=== PATIENT | female | born 2000 | race Two or more races ===

== ENCOUNTER → 2024-11-14 | Outpatient (CLI) | payer MEDICAID ==
[2024-11-16 07:06] LABS: Chlamydia Trachomatis, NAA Negative (Negative); Neisseria gonorrhoeae, NAA Negative (Negative)
== END | disposition home or self-care (01) ==
LOC: LAB 10:19
PROVIDERS: ATTEND Obstetrics & Gynecology
DX: Z34.80 Encounter for supervision of other normal pregnancy, unspecified trimester (principal); Z3A.00 Weeks of gestation of pregnancy not specified; Z72.51 High risk heterosexual behavior

== ENCOUNTER 2024-11-21 13:08 | Observation (INO) | payer MEDICAID ==
--- NOTE | 2024-11-21 17:02 | DVHDS2 ---
Physician Discharge Progress N Final Diagnosis: back pain 37wks Operations or Procedures: Operations or Procedures nst reactive reviwed,halo Condition on Discharge: Good Disposition: Home Discharge Instructions: Diet: Regular Activity: Light activity Medications: na Follow Up Care: Specialist: 3d Discharge Statement: "Patient was advised to return to the ER or call 911 if any headaches, dizziness, shortness of breath, chest pain, abdominal pain, bleeding, fevers, or worsening of medical condition. Patient was counseled about treatment plan, medications, possible side effects, patientverbalized understanding. All questions were answered to the best of my ability. This discharge took greater then 30 minutes in planning, reviewing documentation, counseling the patient, and discussing with other team members." Visit Coding OBGYN Date of Service: November 21, 2024 Billing Provider: DAYNE HUERTA DO MORTGAGE ASSISTANT Common Visit Codes: 87885-[id number] OBS CARE (HIGH) MORTGAGE ASSISTANT Procedure Codes: 80389-62- NON-STRESS TEST DAYNE HUERTA DO November 21, 2024 17:02
== END 2024-11-21 14:55 | disposition home or self-care (01) ==
LOC: LDRP 13:08 → UNDOADMOB 13:08 → LDRP 13:19
PROVIDERS: ADMIT Obstetrics & Gynecology; ATTEND Obstetrics & Gynecology
DX: O99.891 Other specified diseases and conditions complicating pregnancy (principal); M54.59 Other low back pain; O62.9 Abnormality of forces of labor, unspecified; Z3A.37 37 weeks gestation of pregnancy; Z79.899 Other long term (current) drug therapy; Z98.890 Other specified postprocedural states
CPT/HCPCS: 59025; 81002; 94760; G0378

== ENCOUNTER 2024-11-28 12:15 | Observation (INO) | payer MEDICAID ==
[2024-11-28] MEDS ORDERED: PREN-96 PO ×2 (12:35)
--- NOTE | 2024-11-28 18:35 | DVHDS2 ---
Physician Discharge Progress N Final Diagnosis: labor check,ucs 38wks Operations or Procedures: Operations or Procedures nst reviewed reactive Condition on Discharge: Good Disposition: Home Discharge Instructions: Diet: Regular Activity: No Restrictions, As Tolerated Follow Up/Referral: as scheduled. Medications: na Follow Up Care: Specialist: 1d Discharge Statement: "Patient was advised to return to the ER or call 911 if any headaches, dizziness, shortness of breath, chest pain, abdominal pain, bleeding, fevers, or worsening of medical condition. Patient was counseled about treatment plan, medications, possible side effects, patientverbalized understanding. All questions were answered to the best of my ability. This discharge took greater then 30 minutes in planning, reviewing documentation, counseling the patient, and discussing with other team members." Visit Coding OBGYN Date of Service: Nov 28, 2024 Billing Provider: DAYNE HUERTA DO THERAPY ASSISTANT Common Visit Codes: [id number] INP/OBS CARE (HIGH) THERAPY ASSISTANT Procedure Codes: 15740-09- NON-STRESS TEST DAYNE HUERTA DO Nov 28, 2024 18:35
== END 2024-11-28 13:29 | disposition home or self-care (01) ==
LOC: LDRP 12:15 → UNDOADMOB 12:15 → LDRP 12:32 → UNDODISOB 13:29
PROVIDERS: ADMIT Obstetrics & Gynecology; ATTEND Obstetrics & Gynecology
DX: O62.9 Abnormality of forces of labor, unspecified (principal); Z3A.38 38 weeks gestation of pregnancy; Z79.899 Other long term (current) drug therapy; Z98.890 Other specified postprocedural states
CPT/HCPCS: 59025; 81002; 94760; G0378

== ENCOUNTER 2024-11-29 19:18 | Observation (INO) | payer MEDICAID ==
[~2024-11-29] VITALS: Ht 154.9 cm; Wt 88.9 kg
[~2024-11-29 19:18] MED LIST: PREN-96 PO
[2024-11-29 21:18] LABS: Urine Bacteria None Seen /hpf (None Seen)
[2024-11-29 21:44] LABS: Amphetamine Screen, Urine Neg (NEGATIVE); Barbiturate Scree,Urine Neg (NEGATIVE); Benzodiazephine Screen, Urine Neg (NEGATIVE); Cannabinoid Screen, Urine Neg (NEGATIVE); Cocaine Screen, Urine Neg (NEGATIVE); Opiate Scree,Urine Neg (NEGATIVE); Phencyclidine Screen, Urine Neg (NEGATIVE)
[2024-11-29 21:46] LABS: Urine Blood Negative /uL (Negative); Urine Clarity Clear (Clear); Urine Color Light-Yellow (Yellow); Urine Mucus FEW (None Seen); Urine Protein, UAD Negative (Negative); Urine Specific Gravity 1.017 (1.001-1.035); Urine Squamous Epithelial Cell FEW /hpf (<5); Urine Urobilinogen Normal (Negative); Urine WBC 1 /HPF (0-5); Urine pH 6.5 (5.0-9.0)
[2024-11-29] MEDS ORDERED: ACETAMINOPHEN 500 MG TAB or CAP PO ONE (22:30)
[2024-11-29] MEDS: ACETAMINOPHEN 500 MG TAB or CAP PO ONE (22:39)
--- NOTE | 2024-11-29 22:59 | DVHDS2 ---
Physician Discharge Progress N Final Diagnosis: IUP at 38w 3d Catgory I FHR traacing Prodromal Labor Operations or Procedures: Operations or Procedures S 24yo G3,1011 with EDC of 12/10/24 by LMP, EGA 38w [address]d presents to [address]. She reports seeing blood on toilet paper when she wipes her genital area normal movements, no LOF, She reports no urinary symptom. O: A&O x3, VSS Resp unlabored Appears uncomfortable Abdomen palpate soft between contractions FHR baseline: 130bpm, mod variability, accelerations present, no deceleration noted Contractions mod to palpation, frequency every 10minutes VE 2/50/-2 posterior cervix @ 19:51pm A: IUP at 38w 2d P: EFM UA oral hydration Re-assess in 1-2hours Re-assessment @ 22:17 UCs noted on EFM, Frequency: every 10min, same mod to palpation FHR baseline 150bpm, mod variability with acceleration, no deceleration UA report significant for presence of 2+ Ketones, no Leukocyte, no nitrite VE: no cervical change P: Acetaminophen 1G orally x 1 dose Discharge home; pt [place] [address], has family members that will bring her back if needed Advised to increase water intake. Discussed pain relief measures she can incorporate at home to facilitate labor 3rd trimester emergency S&S [facility], labor & pre-eclampsia precautions reviewed with pt; advised to seek health care if any Keep all scheduled appointments; seek care sooner if needed Condition on Discharge: Stable Disposition: Home Discharge Instructions: Diet: Regular Activity: No Restrictions, As Tolerated Activity comment: balance activities with rest period Medications: None Follow Up Care: Discharge Statement: 3rd trimester emergency S&S [facility], labor & pre-eclampsia precautions reviewed with pt; advised to seek health care if any "Patient was advised to return to the ER or call 911 if any headaches, dizzi ness, shortness of breath, chest pain, abdominal pain, bleeding, fevers, or worsening of medical condition. Patient was counseled about treatment plan, medications, possible side effects, patientverbalized understanding. All questions were answered to the best of my ability. This discharge took greater then 30 minutes in planning, reviewing documentation, counseling the patient, and discussing with other team members." Visit Coding OBGYN Date of Service: Nov 29, 2024 Billing Provider: ANSELMO LEVIN CNM WINDOW ASSEMBLER Common Visit Codes: 83850-IMB/OBS SAME DATE (HIGH) WINDOW ASSEMBLER Procedure Codes: 31181-53- NON-STRESS TEST ANSELMO LEVIN CNM Nov 29, 2024 22:59
== END 2024-11-29 23:02 | disposition home or self-care (01) ==
LOC: LDRP 19:18
PROVIDERS: ADMIT Obstetrics & Gynecology; ATTEND Obstetrics & Gynecology
DX: O60.03 Preterm labor without delivery, third trimester (principal); Z3A.38 38 weeks gestation of pregnancy; Z79.899 Other long term (current) drug therapy; Z98.890 Other specified postprocedural states
CPT/HCPCS: 59025; 80307; 81001; 94760; G0378

== ENCOUNTER 2024-11-30 03:22 | Inpatient (IN) | payer MEDICAID ==
[~2024-11-30] VITALS: Ht 154.9 cm; Wt 88.9 kg
[2024-11-30] MEDS: METHYLERGONOVINE MALEATE 0.2 MG/ML AMP IM ONE ×2 (04:13→05:45)
[2024-11-30] MEDS: LACTATED RINGER'S 1,000 ML IV SCH (04:15)
[2024-11-30] MEDS: LACT. RINGERS/OXYTOCIN 20UNITS 1,000 ML IV ONE (04:30)
[2024-11-30] MEDS: OXYTOCIN 10UNIT/ML 1ML VIAL ONE (04:30)
[2024-11-30 04:41] LABS: Urine Bacteria None Seen /hpf (None Seen)
[2024-11-30 04:52] LABS: Urine Blood 3+ /uL (Negative); Urine Clarity Turbid (Clear); Urine Color Yellow (Yellow); Urine Mucus FEW (None Seen); Urine Protein, UAD TRACE (Negative); Urine Specific Gravity 1.028 (1.001-1.035); Urine Squamous Epithelial Cell FEW /hpf (<5); Urine Urobilinogen 2 mg/dL (Negative); Urine WBC 3 /HPF (0-5); Urine pH 6.5 (5.0-9.0)
--- NOTE | 2024-11-30 04:55 | DVHHP2 ---
OB CC & HPI Date Date of Admission: Nov 30, 2024 Patient Identification: : 3 Para: 1 EDC: Dec 10, 2024 EGA: 38w 4d Chief Complaints: Reason for admission: active labor, rupture of membranes Admission Nurse Assessment Rev: Yes History of Present Complaints Ms Dunn returns to Place with a report of SROM at 0245, contractions stronger and more frequent. Past Medical History Cardiac: No pertinent Hx Pulmonary: No pertinent Hx Central Nervous System: No pertinent Hx GI: No pertinent Hx Hemotology/Oncology: No pertinent Hx Hepatobiliary: No pertinent Hx Psychiatric: No pertinent Hx Musculoskeletal: No pertinent Hx Rheumotologic: No pertinent Hx Infectious Disease: No peritnent Hx ENT: No pertinent Hx Renal/: No pertinent Hx Endocrine: No pertinent Hx Dermatology: No pertinent Hx Past Surgical History: No pertinent Hx OB History OB History Care: Good Care Ultrasounds: Normal mid trimester US Obstetrical Complications: None Medical Complications: None Allergies: Coded Allergies: NO KNOWN ALLERGIES (Unverified , 11/29/24) Home Meds Reported Medications Vit W/ Ferrous Fumara ( One Daily) Daily Tab, 1 TAB PO DAILY, #90 TAB 3 Refills 11/28/24 Current Medications Current Medications Medications (Trade) Dose Ordered Sig/Jason Route PRN Reason Start Time Stop Time Status Last Admin Lactated Ringer's 1,000 ml @ 125 mls/hr Q8H IV 11/30/24 04:15 Witch Jazz (Tucks) 1 pad PRN PRN TOP PERINEAL AREA DISCOMFORT 11/30/24 04:15 Sodium Lauryl Sulfate (Phisoderm) 240 ml PRN PRN TOP PERINEAL AREA DISCOMFORT 11/30/24 04:15 Benzocaine (Dermoplast) 1 applic PRN PRN TOP PERINEAL AREA DISCOMFORT 11/30/24 04:15 Family & Social History Family/Social History Past Family/Social History: None pertinent Blood Type: O+ Rubella: immune RPR/VDRL: Negative GBS Status: Negative HBsAG: Negative Review of Systems Constitutional: No symptom reported Ears, Nose, & Throat: No symptom reported Eyes: No symptom reported Pulmonary/Respiratory: No symptom reported Cardiovascular: No symptom reported Gastrointestinal: No symptom reported Genitourinary: No symptom reported Musculoskeletal: No symptom reported Skin: No symptom reported Psychiatric: No symptom reported Endocrine: No symptom reported Hemotologic/Lymphatic: No symptom reported OB Admission Exam Physical Exam HEENT: Nasal Mucosa Normal, Eyes non-injected, Oropharynx Normal, Moist Membranes Heart: Rhythm Normal Lungs: Clear Abdomen: Gravid (Non- tender) Extremities: Normal Reflexes: Normal Cervical Dilatation: other Effacement: 100% Station: +3 Membranes: Ruptured Amniotic Fluid: Clear Contractions on Admission: < 5 Minutes Apart Date/Time Contractions Began: 11/29/24 @1800pm Frequency of Contractions: Now every 2minutes per pt Duration: 60secs Intensity: Mild OB Plan Plan Admitting Diagnosis: IUP at 38w 4d 2nd stage of Labor Plan: Expectant Management Other Plan: She rapidly progressed to 2nd stage of labor followed by of a viable boy with loose nuchal cord at 0341 in Triage Room Bed 1. Transferred to R 6 on bed with skin to skin with her. score 8 & 9* at one and five minutes of life respectively. Placenta delivered spontaneously at . Visit Coding OBGYN Date of Service: Nov 30, 2024 Billing Provider: ANSELMO LEVIN CNM AUTO MECHANICS INSTRUCTOR Common Visit Codes: [id number] INP/OBS CARE (HIGH) ANSELMO LEVIN CNM Nov 30, 2024 04:55
[2024-11-30] MEDS ORDERED: LACT. RINGERS/OXYTOCIN 20UNITS 500 ML IV ONE (05:00)
[2024-11-30] MEDS ORDERED: OXYTOCIN 10UNIT/ML 1ML VIAL IM ONE (05:00)
--- NOTE | 2024-11-30 05:03 | LDN2 ---
Labor and Delivery Note Date 11/30/24 Age 24 3 Para 1 AB 1 EDC 12/10/24 EGA 38w 4d Diagnosis IUP at 388w 4d 2nd stage of labor Vaginal Delivery: VTX Vacuum Assisted: No Placenta: Spontaneous Sex: Male Weight 7Lbs 11oz Apgars 8 and 9 at one and five minutes of life respectively Nuchal Cord Transected: No Amniotic Fluid: Clear Episiotomy: No Extension: Yes (periurethral laceration ) Repaired with Does not require repair; very superficial and not bleeding EBL 300mLs Complications None Conditions Mother and baby in stable condition Reception Agent Somu Comments/Significant Med Jake At 0341 24yo, now delivered a viable Male infant w loose nuchal cord by w/ Score 8 and 9 at one & five minutes of life. SONJA position placed skin to skin on pts chest. Cord clamped and cut after pulsation ceased. Cord blood sent. Intact 3-vessel cord placenta delivered spontaneously, Lee. Pitocin given intramuscularly. Later followed by Pitocin infusion when IV line was started. Placenta sent to pathology. . Fundus at U, firm, midline, and light lochia. QBL 300ml. VSS. Count correct x2. Patient to care and baby to couplet care, both stable. Visit Coding OBGYN Date of Service: Nov 30, 2024 Billing Provider: ANSELMO LEVIN CNM EPOXY COATINGS INSTALLER Common Visit Codes: [id number] INP/OBS CARE (HIGH) EPOXY COATINGS INSTALLER Procedure Codes: 93680-VBA DELIVERY ONLY ANSLEMO LEVIN CNM Nov 30, 2024 05:02
[2024-11-30 05:10] LABS: Amphetamine Screen, Urine Neg (NEGATIVE); Barbiturate Scree,Urine Neg (NEGATIVE); Benzodiazephine Screen, Urine Neg (NEGATIVE); Cannabinoid Screen, Urine Neg (NEGATIVE); Cocaine Screen, Urine Neg (NEGATIVE); Opiate Scree,Urine Neg (NEGATIVE); Phencyclidine Screen, Urine Neg (NEGATIVE)
[2024-11-30 05:32] LABS: Basophils # (auto) 0 10 ^3/uL (0-0.2); Basophils % (auto) 0.2 % (0.0-2.0); Eosinophils # (auto) 0 10 ^3/uL (0-0.8); Eosinophils % (auto) 0.1 % (0.0-7.0); Hematocrit 33.3 % (36.0-46.0); Lymphocytes # (auto) 1.2 10 ^3/uL (0.4-5.4); Mean Corpuscular Hemoglobin 28.3 pg (28.0-32.0); Mean Corpuscular Hgb Conc. 33.1 g/dL (32.0-36.0); Mean Corpuscular Volume 85.6 fL (80.0-100.0); Monocytes # (auto) 0.6 10 ^3/uL (0-1.3); Monocytes % (auto) 3.9 % (0.0-12.0); Neutrophils # (auto) 12.6 10 ^3/uL (1.6-8.6); Neutrophils % (auto) 87.8 % (37.0-80.0); Platelet Count (auto) 136 10^3/uL (140-450); Red Blood Cells 3.89 10^6/uL (4.0-5.20); Red Cell Distribution Width 15.9 % (11.8-14.3); White Blood Cell 14.4 10^3/uL (4.4-10.8)
[2024-11-30 05:41] LABS: Alanine Aminotransferase 15 U/L (7-40); Anion Gap 8 (5-15); Aspartate Aminotransferase 23 U/L (13-40); BUN/Creatinine Ratio 9.7 (10.0-20.0); Carbon Dioxide 22 mmol/L (20-31); Chloride 107 mmol/L (98-107); Glucose 88 mg/dL (74-106); Sodium 137 mmol/L (136-145); Total Protein 6.4 g/dL (5.7-8.2)
[2024-11-30 05:42] LABS: Albumin 3.5 g/dL (3.2-4.8); Bilirubin, Total 0.5 mg/dL (0.2-1.0)
[2024-11-30 05:46] LABS: INR 0.95 (0.9-1.15); Partial Thromboplastin Time 29.1 SEC (24.5-34.5); Prothrombin Time 10.1 sec (9.3-11.8)
[2024-11-30] MEDS: LACT. RINGERS/OXYTOCIN 20UNITS 500 ML IV ONE (05:48)
[2024-11-30 06:22] LABS: Alkaline Phosphatase 173 U/L (46-116); Blood Urea Nitrogen 7 mg/dL (9-23); Calcium 8.3 mg/dL (8.7-10.4); Potassium 3.4 mmol/L (3.5-5.1)
[2024-11-30] MEDS: PHISODERM TOP SOLN 240ML BTL TOP PRN (07:01)
[2024-11-30] MEDS: WITCH HAZEL-GLYCERIN PAD TOP PRN (07:02)
[2024-11-30] MEDS: DERMOPLAST 60ML BOTTLE TOP PRN (07:02)
[2024-11-30] MEDS ORDERED: ONDANSETRON ODT 4 MG TAB PO PRN (07:15)
[2024-11-30] MEDS: ACETAMINOPHEN 325 MG TAB PO PRN (07:45)
[2024-11-30 11:07] VITALS: BP 108/60; PULSE 85; RESP 18; TEMP 98.5; O2SAT 97
[2024-11-30] MEDS: IBUPROFEN 600 MG TAB PO PRN (11:13)
[2024-11-30 19:00] VITALS: BP 116/69; PULSE 72; RESP 16; TEMP 97.9; O2SAT 96
[2024-11-30 23:00] VITALS: BP 107/73; PULSE 65; RESP 16; TEMP 98.3; O2SAT 97
--- NOTE | 2024-12-01 02:53 | DVHPN2 ---
Progress Note Date Seen: Dec 01, 2024 Subjective S: Lochia minimal Tolerating regular diet well. Ambulating and voiding well w/o feeling lightheaded or dizzy. Passing flatus but no BM yet. Formula feeding. Contraceptive plan: OCP Desires and requests to be discharged home today vital signs Vital Sign Date Time Temp Pulse Resp B/P (MAP) Pulse Ox O2 Delivery O2 Flow Rate FiO2 11/30/24 23:00 98.3 65 16 107/73 (84) 97 98.3 11/30/24 19:00 Room Air Total Intake and Output 11/30/24 11/30/24 12/01/24 15:00 23:00 07:00 Intake Total 850 ml Output Total 2000 ml 250 ml Balance -2000 ml 600 ml medications Current Medications Medications Dose Ordered Sig/Jason Route Start Time Stop Time Status Last Admin Dose Admin Lactated Ringer's 1,000 ml @ 125 mls/hr Q8H IV 11/30/24 04:15 Savi Schulz 1 pad PRN PRN TOP 11/30/24 04:15 11/30/24 07:02 1 PAD Sodium Lauryl Sulfate 240 ml PRN PRN TOP 11/30/24 04:15 11/30/24 07:01 240 ML Benzocaine 1 applic PRN PRN TOP 11/30/24 04:15 11/30/24 07:02 1 APPLIC Ibuprofen 600 mg Q6HP PRN PO 11/30/24 07:15 12/01/24 01:37 600 MG Acetaminophen 650 mg Q4HP PRN PO 11/30/24 07:15 11/30/24 23:28 650 MG Ondansetron HCl 4 mg Q4HPRN PRN PO 11/30/24 07:15 laboratory and microbiology Laboratory Tests 11/30/24 04:56 Test 11/30/24 04:56 Range/Units Serum Glucose 88 74-106 mg/dL Objective A&O x3 NAD. Afebrile, VSS Chest: heart and lung sounds normal. Breasts: Nipples intact w/o cracks or soreness Abdomen: normal BS, soft, non-tender, no rebound or guarding, fundus firm @ U- 1, lochia minimal Perineum:- intact no edema, or erythema, Extremities: no edema or tenderness Lochia - minimal Assessment/Plan 24 yo now ppd#1 s/p doing well. Blood Type: O Rh: Positive Formula feeding Rubella: Immune Pain control with oral medications Bowel regimen: Increase fluid intake and fiber in diet, Laxative PRN PP BCM Plan: OCP Discharge plan: May discharge home later today if condition remains stable Plan discussed with: Patient Visit Coding OBGYN Date of Service: Dec 01, 2024 Billing Provider: ANSELMO LEVIN CNM PNEUMATIC TESTER MECHANIC Common Visit Codes: [id number] INP/OBS CARE(HIGH) ANSELMO LEVIN CNM Dec 01, 2024 02:52
[2024-12-01 03:00] VITALS: BP 100/65; PULSE 83; RESP 18; TEMP 98.1; O2SAT 99
--- NOTE | 2024-12-01 03:01 | DVHDS2 ---
Discharge Summary Date of Admission Nov 30, 2024 at 03:22 Date of Discharge: Dec 01, 2024 Admitting Diagnosis IUP at 39w 2d Spontaneous Rupture of membranes Labs/Diagnostic Data: Laboratory Results Test 11/30/24 04:56 11/30/24 04:12 White Blood Count 14.4 10^3/uL (4.4-10.8) Red Blood Count 3.89 10^6/uL (4.0-5.20) Hemoglobin 11.0 g/dL (12.2-16.2) Hematocrit 33.3 % (36.0-46.0) Mean Corpuscular Volume 85.6 fL (80.0-100.0) Mean Corpuscular Hemoglobin 28.3 pg (28.0-32.0) Mean Corpuscular Hemoglobin Concent 33.1 g/dL (32.0-36.0) Red Cell Distribution Width 15.9 % (11.8-14.3) Platelet Count 136 10^3/uL (140-450) Mean Platelet Volume 11.4 fL (6.9-10.8) Neutrophils (%) (Auto) 87.8 % (37.0-80.0) Lymphocytes (%) (Auto) 8.0 % (10.0-50.0) Monocytes (%) (Auto) 3.9 % (0.0-12.0) Eosinophils (%) (Auto) 0.1 % (0.0-7.0) Basophils (%) (Auto) 0.2 % (0.0-2.0) Neutrophils # (Auto) 12.6 10 ^3/uL (1.6-8.6) Lymphocytes # (Auto) 1.2 10 ^3/uL (0.4-5.4) Monocytes # (Auto) 0.6 10 ^3/uL (0-1.3) Eosinophils # (Auto) 0 10 ^3/uL (0-0.8) Basophils # (Auto) 0 10 ^3/uL (0-0.2) Nucleated Red Blood Cells 0.0 % Prothrombin Time 10.1 sec (9.3-11.8) Prothrombin Time INR 0.95 (0.9-1.15) Activated Partial Thromboplast Time 29.1 SEC (24.5-34.5) Sodium Level 137 mmol/L (136-145) Potassium Level 3.4 mmol/L (3.5-5.1) Chloride Level 107 mmol/L (98-107) Carbon Dioxide Level 22 mmol/L (20-31) Anion Gap 8 (5-15) Blood Urea Nitrogen 7 mg/dL (9-23) Creatinine 0.72 mg/dL (0.550-1.02) Glomerular Filtration Rate Calc 120 mL/min (>90) BUN/Creatinine Ratio 9.7 (10.0-20.0) Serum Glucose 88 mg/dL (74-106) Calcium Level 8.3 mg/dL (8.7-10.4) Total Bilirubin 0.5 mg/dL (0.2-1.0) Aspartate Amino Transferase (AST) 23 U/L (13-40) Alanine Aminotransferase (ALT) 15 U/L (7-40) Alkaline Phosphatase 173 U/L (46-116) Total Protein 6.4 g/dL (5.7-8.2) Albumin 3.5 g/dL (3.2-4.8) Treponema pallidum Antibody Non-reactive (Negative) Hepatitis C Antibody Negative (Negative) Urine Color Yellow (Yellow) Urine Clarity Turbid (Clear) Urine pH 6.5 (5.0-9.0) Urine Specific Stewart 1.028 (1.001-1.035) Urine Protein Trace (Negative) Urine Ketones 3+ (Negative) Urine Blood 3+ /uL (Negative) Urine Nitrite Negative (Negative) Urine Bilirubin Negative (Negative) Urine Urobilinogen 2 mg/dL (Negative) Urine Leukocyte Esterase Negative /uL (Negative) Urine RBC 185 /hpf (0 - 4) Urine Microscopic WBC 3 /HPF (0-5) Urine Squamous Epithelial Cells Few /hpf (<5) Urine Bacteria None seen /hpf (None Seen) Urine Mucus Few (None Seen) Urine Glucose Normal mg/dL (Normal) Urine Opiates Screen Neg (NEGATIVE) Urine Fentanyl Screen Neg (NEGATIVE) Urine Barbiturates Screen Neg (NEGATIVE) Urine Phencyclidine Screen Neg (NEGATIVE) Urine Amphetamines Screen Neg (NEGATIVE) Urine Benzodiazepines Screen Neg (NEGATIVE) Urine Cocaine Screen Neg (NEGATIVE) Urine Cannabinoids Screen Neg (NEGATIVE) Other Laboratory Tests 11/30/24 04:56 Brief Hx & Hospital Course: Ms Dunn was admitted on 11/30/24 at 39w 2d EGA for SROM. She progressed rapidly to 2nd stage of labor and had a over an intact perineum. (See Delivery Note for details) Normal course; meeting milestones w/o any problem or complications. Condition at Discharge: Good Final Diagnosis/Problems List Same Term - Delivered Discharge Disposition: Home Discharge Instruct/Medications Diet: Regular Diet comment: Routine regular diet rich in fiber, protein, iron and vitamin C with adequate fluid intake. Activity: No Restrictions, As Tolerated Activity comment: Unrestricted. Advance as tolerated. Balance activities with rest periods No heavy lifting, pushing or straining. Pelvic rest x 6week Follow Up/Referral: self care instructions given. emergency signs and symptoms including but not limited to pre-eclampsia precautions and signs of infection, PPH & of PPD reviewed with patient. Follow up with OB Provider in 1 week Medications: Ibuprofen 600mg every 6 hours as needed for pain. Continue Vitamin and iron Discharge Statement: self care instructions given. emergency signs and symptoms including but not limited to pre-eclampsia precautions and signs of infection, PPH & of PPD reviewed with patient. Follow up with OB Provider in 1 week "Patient was advised to return to the ER or call 911 if any headaches, dizziness, shortness of breath, chest pain, abdominal pain, bleeding, fevers, or worsening of medical condition. Patient was counseled about treatment plan, medications, possible side effects, patientverbalized understanding. All questions were answered to the best of my ability. This discharge took greater then 30 minutes in planning, reviewing documentation, counseling the patient, and discussing with other team members." ASSESSMENT ASSESSMENT Hospital Course Ms Dunn was admitted on 11/30/24 at 39w 2d EGA for SROM. She progressed rapidly to 2nd stage of labor and had a over an intact perineum. (See Delivery Note for details) Normal course; meeting milestones w/o any problem or complications. Assessment IUP at 39w 2d SROM Term - Delivered Visit Coding OBGYN Date of Service: Dec 01, 2024 Billing Provider: ANSELMO LEVIN CNM PAPER REWINDER OPERATOR Common Visit Codes: 10113-SDP/OBS DISCH DAY <30MIN ANSELMO LEVIN CNM Dec 01, 2024 03:00
[2024-12-01 07:00] VITALS: BP 99/53; PULSE 67; RESP 16; TEMP 98.2; O2SAT 97
[2024-12-01 08:43] LABS: Basophils # (auto) 0.1 10 ^3/uL (0-0.2); Basophils % (auto) 0.6 % (0.0-2.0); Eosinophils # (auto) 0.3 10 ^3/uL (0-0.8); Eosinophils % (auto) 2.9 % (0.0-7.0); Hematocrit 33.9 % (36.0-46.0); Hemoglobin 11.2 g/dL (12.2-16.2); Lymphocytes % (auto) 27.9 % (10.0-50.0); Mean Corpuscular Hemoglobin 28.5 pg (28.0-32.0); Mean Corpuscular Volume 86.6 fL (80.0-100.0); Monocytes # (auto) 0.5 10 ^3/uL (0-1.3); Monocytes % (auto) 5.1 % (0.0-12.0); Neutrophils # (auto) 6.7 10 ^3/uL (1.6-8.6); Neutrophils % (auto) 63.5 % (37.0-80.0); Platelet Count (auto) 147 10^3/uL (140-450); Red Blood Cells 3.91 10^6/uL (4.0-5.20); Red Cell Distribution Width 15.7 % (11.8-14.3); White Blood Cell 10.6 10^3/uL (4.4-10.8)
== END 2024-12-01 12:15 | disposition home or self-care (01) | DRG 560 ==
LOC: LDRP 03:22
PROVIDERS: ADMIT Obstetrics & Gynecology; ATTEND Obstetrics & Gynecology
PROC: 10E0XZZ Delivery of Products of Conception, External Approach (ICD-10-PCS; principal; 2024-11-30)
DX: O69.81X0 Labor and delivery complicated by cord around neck, without compression, not applicable or unspecified (principal); Z37.0 Single live birth; O42.02 Full-term premature rupture of membranes, onset of labor within 24 hours of rupture; O71.82 Other specified trauma to perineum and vulva; Z3A.38 38 weeks gestation of pregnancy
CPT/HCPCS: 36415; 59025; 59409; 80053; 80307; 81001; 81002; 85025; 85610; 85730; 86780; 86803; 86850; 86900; 86901; 94760; 96365; 96366; 96372; G0378; J2590